=== PATIENT | male | born 1980 | race American Indian/Alaskan Native ===

== ENCOUNTER 2019-01-10 14:06 | Emergency (ER) | payer SELFPAY ==
--- NOTE | 2019-01-10 14:46 | Event Note ---
ED Screening Note ED Screening Note: states he was lifting something heavy two days ago states he felt a popping sensation in the right lower back states the pain is radiating down the right leg states he has been doing epsom salt bath and heating pad states he took aleve without much relief no numbness or weakness no bowel or bladder incontinence No PMHx +smoker +ETOH no drug use This initial assessment/diagnostic orders/clinical plan/treatment(s) is/are subject to change based on patients health status, clinical progression and re- assessment by fellow clinical providers in the ED. Further treatment and workup at subsequent clinical providers discretion. Patient/guardian urged not to elope from the ED as their condition may be serious if not clinically assessed and managed. Initial orders include: XR of the L-spine
--- NOTE | 2019-01-10 15:31 | XRay Report ---
XR spine lumbosacral 2-3V INDICATION / CLINICAL INFORMATION: lower back pain. COMPARISON: None available. FINDINGS: BONES/JOINT(S): No vertebral fracture. 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 Remaining alignment is normal. No significant disc heig ht loss. SOFT TISSUES: No significant abnormality. ADDITIONAL FINDINGS: None. Signer Name: Richard Cloud MD Signed: 01/10/2019 3:26 PM Workstation Name: [id number]
[2019-01-10] MEDS ORDERED: DELTASONE PO ONE (15:57)
[2019-01-10] MEDS ORDERED: NORCO 10/325 PO ONE (15:57)
[2019-01-10] MEDS ORDERED: ZOFRAN ODT PO ONE (15:57)
--- NOTE | 2019-01-10 16:20 | Emergency Department Report ---
ED Back Pain/Injury HPI - General Chief Complaint: Back Pain/Injury Stated Complaint: BACK/RT LEG PAIN Time Seen by Provider: 01/10/19 14:43 Source: patient Limitations: No Limitations - History of Present Illness Initial Comments: The patient presents to the emergency department with the chief complaint of lower back pain that radiates into his right leg and foot. Patient states 2 days ago he was at work and he lifted something the wrong way when the back pain began. Patient denies any issues with his bladder or bowel. Patient also denies any numbness or paresthesias in the perineum region. MD Complaint: back pain -: Sudden Similar Symptoms Previously: No Place: work Radiation: right leg Severity: moderate Severity scale (0 -10): 6 Quality: burning, sharp Consistency: constant Worsens With: walking Associated Symptoms: denies other symptoms Treatments Prior to Arrival: NSAIDS - Related Data Previous Rx's Medication Instructions Recorded Last Taken Type HYDROcodone/APAP 7.5-325 [[place] 1 each PO Q6HR PRN #15 tablet 01/10/19 Unknown Rx 7.5/325] Naproxen [Naprosyn] 500 mg PO BID PRN #20 tablet 01/10/19 Unknown Rx predniSONE [Deltasone] 20 mg PO DAILY #15 tablet 01/10/19 Unknown Rx Allergies Allergy/AdvReac Type Severity Reaction Status Date / Time No Known Allergies Allergy Verified 01/10/19 14:45 ED Review of Systems ROS: Stated complaint: BACK/RT LEG PAIN Other details as noted in HPI Comment: All other systems reviewed and negative Constitutional: denies: chills, fever Eyes: denies: eye pain, eye discharge, vision change ENT: denies: ear pain, throat pain Respiratory: denies: cough, shortness of breath, wheezing Cardiovascular: denies: chest pain, palpitations Endocrine: no symptoms reported Gastrointestinal: denies: abdominal pain, nausea, diarrhea Genitourinary: denies: urgency, dysuria Musculoskeletal: back pain. denies: joint swelling, arthralgia Skin: denies: rash, lesions Neurological: denies: headache, weakness, paresthesias Psychiatric: denies: anxiety, depression Hematological/Lymphatic: denies: easy bleeding, easy bruising ED Past Medical Hx - Past Medical History Previous Medical History?: No - Surgical History Past Surgical History?: No - Social History Smoking Status: Current Every Day Smoker Substance Use Type: None - Medications Home Medications: Home Medications Medication Instructions Recorded Confirmed Last Taken Type HYDROcodone/APAP 7.5-325 [[place] 1 each PO Q6HR PRN #15 tablet 01/10/19 Unknown Rx 7.5/325] Naproxen [Naprosyn] 500 mg PO BID PRN #20 tablet 01/10/19 Unknown Rx predniSONE [Deltasone] 20 mg PO DAILY #15 tablet 01/10/19 Unknown Rx ED Physical Exam - General Limitations: No Limitations General appearance: alert, in no apparent distress - Head Head exam: Present: atraumatic, normocephalic - Eye Eye exam: Present: normal appearance - ENT ENT exam: Present: mucous membranes moist - Neck Neck exam: Present: normal inspection - Respiratory Respiratory exam: Present: normal lung sounds bilaterally. Absent: respiratory distress - Cardiovascular Cardiovascular Exam: Present: regular rate, normal rhythm. Absent: systolic murmur, diastolic murmur, rubs, gallop - Rectal Rectal exam: Present: deferred - Extremities Exam Extremities exam: Present: normal inspection - Back Exam Back exam: Present: paraspinal tenderness, other (paralumbar tenderness to palpation; positive leg raise right lower extremity) - Neurological Exam Neurological exam: Present: alert, oriented X3, CN II-XII intact. Absent: motor sensory deficit - Psychiatric Psychiatric exam: Present: normal affect, normal mood - Skin Skin exam: Present: warm, dry, intact, normal color. Absent: rash ED Course Vital Signs 01/10/19 01/10/19 14:44 16:07 Temperature 98.1 F Pulse Rate 91 H Respiratory 18 20 Rate Blood Pressure 108/71 [Right] O2 Sat by Pulse 98 Oximetry ED Medical Decision Making - Radiology Data Radiology results: report reviewed - Medical Decision Making Discussed results with patient and he need to follow-up as an outpatient for further imaging as deemed necessary such as a CT or MRI Patient instructed to return if he begins having issues with his bladder or bowel or paresthesias. Paresthesia definition was discussed with the patient Critical care attestation.: If time is entered above; I have spent that time in minutes in the direct care of this critically ill patient, excluding procedure time. ED Disposition Clinical Impression: Lower back pain, Sciatica Disposition: - TO HOME OR SELFCARE Is pt being admited?: No Does the pt Need Aspirin: No Condition: Stable Instructions: Sciatica (ED), Acute Low Back Pain (ED), Lumbar Radiculopathy (ED) Prescriptions: predniSONE [Deltasone] 20 mg PO DAILY #15 tablet Naproxen [Naprosyn] 500 mg PO BID PRN #20 tablet PRN Reason: pain HYDROcodone/APAP 7.5-325 [[place] 7.5/325] 1 each PO Q6HR PRN #15 tablet PRN Reason: Pain Referrals: JOYCE LONGORIAHAYDEN MD [facility] [Primary Care Provider] - 3-5 Days [facility] [Provider Group] - 3-5 Days [facility] [Provider Group] - 3-5 Days [facility] [Outside] - 3-5 Days Time of Disposition: 16:19
[2019-01-10] MEDS ORDERED: NAPROSYN PO ONE (16:58)
[2019-01-10 17:01] VITALS: BP 106/71
== END 2019-01-10 17:00 | disposition home or self-care (01) ==
LOC: ED 14:06
DX: M54.40 Lumbago with sciatica, unspecified side (principal); Z79.899 Other long term (current) drug therapy; F17.200 Nicotine dependence, unspecified, uncomplicated
CPT/HCPCS: 72100; 99283; J7512; Q0162

== ENCOUNTER 2019-01-21 10:00 | Emergency (ER) | payer SELFPAY ==
[2019-01-21 10:12] VITALS: BP 135/93
--- NOTE | 2019-01-21 12:45 | Emergency Department Report ---
ED General Adult HPI - General Chief complaint: Extremity Injury, Lower Stated complaint: RT LEG NERVE PAIN Time Seen by Provider: 01/21/19 12:14 Source: patient Mode of arrival: Ambulatory Limitations: No Limitations - History of Present Illness Initial comments: Patient presents to the emergency department with a chief complaint of lower back pain that radiates into his right leg. Patient states he was seen here approximately 2 weeks ago and diagnosed with sciatica and a bulging disc and presents to the ED today because of continued pain. She denies any issue with bladder or stool. -: Gradual Location: back Radiation: extremity Severity scale (0 -10): 6 Quality: stabbing Consistency: constant Improves with: none Worsens with: none Associated Symptoms: denies other symptoms Treatments Prior to Arrival: none - Related Data Previous Rx's Medication Instructions Recorded Last Taken Type HYDROcodone/APAP 7.5-325 [[place] 1 each PO Q6HR PRN #15 tablet 01/10/19 Unknown Rx 7.5/325] Naproxen [Naprosyn] 500 mg PO BID PRN #20 tablet 01/10/19 Unknown Rx predniSONE [Deltasone] 20 mg PO DAILY #15 tablet 01/10/19 Unknown Rx HYDROcodone/APAP 5-325 [[place] 1 each PO Q6HR PRN #12 tablet 01/21/19 Unknown Rx 5/325] Ketorolac [Toradol] 10 mg PO Q6H PRN #12 tablet 01/21/19 Unknown Rx predniSONE [Deltasone] 20 mg PO DAILY #15 tablet 01/21/19 Unknown Rx Allergies Allergy/AdvReac Type Severity Reaction Status Date / Time No Known Allergies Allergy Verified 01/10/19 14:45 ED Review of Systems ROS: Stated complaint: RT LEG NERVE PAIN Other details as noted in HPI Constitutional: denies: chills, fever Eyes: denies: eye pain, eye discharge, vision change ENT: denies: ear pain, throat pain Respiratory: denies: cough, shortness of breath, wheezing Cardiovascular: denies: chest pain, palpitations Endocrine: no symptoms reported Gastrointestinal: denies: abdominal pain, nausea, diarrhea Genitourinary: denies: urgency, dysuria Musculoskeletal: back pain. denies: joint swelling, arthralgia Skin: denies: rash, lesions Neurological: denies: headache, weakness, paresthesias Psychiatric: denies: anxiety, depression Hematological/Lymphatic: denies: easy bleeding, easy bruising ED Past Medical Hx - Past Medical History Previous Medical History?: No - Surgical History Past Surgical History?: No - Social History Smoking Status: Current Every Day Smoker Substance Use Type: None - Medications Home Medications: Home Medications Medication Instructions Recorded Confirmed Last Taken Type HYDROcodone/APAP 7.5-325 [[place] 1 each PO Q6HR PRN #15 tablet 01/10/19 Unknown Rx 7.5/325] Naproxen [Naprosyn] 500 mg PO BID PRN #20 tablet 01/10/19 Unknown Rx predniSONE [Deltasone] 20 mg PO DAILY #15 tablet 01/10/19 Unknown Rx HYDROcodone/APAP 5-325 [[place] 1 each PO Q6HR PRN #12 tablet 01/21/19 Unknown Rx 5/325] Ketorolac [Toradol] 10 mg PO Q6H PRN #12 tablet 01/21/19 Unknown Rx predniSONE [Deltasone] 20 mg PO DAILY #15 tablet 01/21/19 Unknown Rx ED Physical Exam - General Limitations: No Limitations General appearance: alert, in no apparent distress - Head Head exam: Present: atraumatic, normocephalic - Eye Eye exam: Present: normal appearance, PERRL - ENT ENT exam: Present: mucous membranes moist - Neck Neck exam: Present: normal inspection - Respiratory Respiratory exam: Present: normal lung sounds bilaterally. Absent: respiratory distress - Cardiovascular Cardiovascular Exam: Present: regular rate, normal rhythm. Absent: systolic murmur, diastolic murmur, rubs, gallop - GI/Abdominal GI/Abdominal exam: Present: soft, normal bowel sounds - Rectal Rectal exam: Present: deferred - Extremities Exam Extremities exam: Present: normal inspection - Back Exam Back exam: Present: normal inspection - Neurological Exam Neurological exam: Present: alert, oriented X3, CN II-XII intact. Absent: motor sensory deficit - Psychiatric Psychiatric exam: Present: normal affect, normal mood - Skin Skin exam: Present: warm, dry, intact, normal color. Absent: rash ED Course Vital Signs 01/21/19 10:08 Temperature 98.3 F Pulse Rate 98 H Respiratory 16 Rate Blood Pressure 135/93 O2 Sat by Pulse 99 Oximetry ED Medical Decision Making - Medical Decision Making discussed plan of care with patient Critical care attestation.: If time is entered above; I have spent that time in minutes in the direct care of this critically ill patient, excluding procedure time. ED Disposition Clinical Impression: Sciatica, Lumbar radiculopathy Disposition: - TO HOME OR SELFCARE Is pt being admited?: No Does the pt Need Aspirin: No Condition: Stable Instructions: Lumbar Radiculopathy (ED), Sciatica (ED) Time of Disposition: 12:53
[2019-01-21] MEDS ORDERED: NORCO 5/325 PO ONE (12:47)
[2019-01-21] MEDS ORDERED: ZOFRAN ODT PO ONE (12:47)
== END 2019-01-21 13:25 | disposition home or self-care (01) ==
LOC: ED 10:00
DX: M54.41 Lumbago with sciatica, right side (principal); F17.200 Nicotine dependence, unspecified, uncomplicated; Z79.899 Other long term (current) drug therapy
CPT/HCPCS: 99282; Q0162